=== PATIENT | female | born 1980 | race Caucasian/White ===

== ENCOUNTER → 2017-11-30 | Outpatient (CLI) | END | disposition home or self-care (01) ==

== ENCOUNTER → 2019-01-26 | Outpatient (CLI) | payer BC ==
[~2019-01-26] MED LIST: Bactrim Ds Tab1 EACH PO; CEPH500 PO; CHOL10002 PO; CIPR500 PO; CRUTCH3 USE; DIPH50 PO; DOCU100 PO; ESCI10 PO; ESTR2 PO; FEXPSEER PO; HYDACE5 PO; HYDACE5325 PO; HYDR1TAB94 PO; IBUP800 PO; METF500 PO; NAPR500 PO; NAPR550 PO; ONDA4 PO; ONDA8ODT MM; OXYACE5T PO; PRED20 PO; PROACE100; PROG100 PO; RXHYD5325 PO; RXOXYACE PO; TAMS.4ER PO; VITAMIN B122500 MCG PO
[2019-01-28 01:08] LABS: CHLAMYDIA TRACHOMATIS, NAA Negative (Negative); HPV 16 Negative (Negative); HPV 18 Negative (Negative); HPV OTHER HR TYPES Positive (Negative); NEISSERIA GONORRHOEAE, NAA Negative (Negative)
== END | disposition home or self-care (01) ==
LOC: LAB SHORT 12:49 → LAB 12:49
PROVIDERS: Nurse Practitioner Women's Health
DX: Z11.3 Encounter for screening for infections with a predominantly sexual mode of transmission (principal); Z12.72 Encounter for screening for malignant neoplasm of vagina; Z91.89 Other specified personal risk factors, not elsewhere classified
CPT/HCPCS: 87491; 87591; 87624; 87625; G0123

== ENCOUNTER → 2019-01-28 | Outpatient (CLI) | payer BC ==
[2019-01-29 07:10] LABS: HBSAG SCREEN Negative (Negative); HCV ANTIBODY <0.1 (0.0-0.9); HIV SCREEN 4TH GENERATION WRFX Non Reactive (Non Reactive)
[2019-01-31 13:06] LABS: HSV-2 IGG SUPPLEMENTAL TEST Positive (Negative)
== END | disposition home or self-care (01) ==
LOC: LAB 09:47 → LAB SHORT 09:47
PROVIDERS: Nurse Practitioner Women's Health
DX: Z11.3 Encounter for screening for infections with a predominantly sexual mode of transmission (principal)
CPT/HCPCS: 36415; 86592; 86695; 86696; 86803; 87340; 87389

== ENCOUNTER → 2019-07-12 | Outpatient (CLI) | payer BC, OTHER ==
[2019-07-13 11:28] LABS: Antinuclear Antibody Screen Positive (Negative)
[2019-07-13 11:41] LABS: Rheumatoid Factor, Serum Negative (Negative)
[2019-07-15 11:37] LABS: ANA Pattern Homogenous
== END | disposition home or self-care (01) ==
LOC: LAB SHORT 13:45 → LAB 13:45
PROVIDERS: Hospitalist
DX: M25.50 Pain in unspecified joint (principal)
CPT/HCPCS: 85651; 86038; 86039; 86430